=== PATIENT | male | born 1950 | race Caucasian/White ===

== ENCOUNTER 2016-04-29 14:20 | Outpatient (CLI) | payer SELFPAY ==
[2016-04-29] MEDS ORDERED: PROPAFENONE HCL 150 MG TAB PO ONE (14:30)
--- NOTE | 2016-05-01 15:06 | EPPROC ---
Electrophysiology Procedure Note: Pt admitted for first dose of Propafenone 600mg po . He tolerated it well. he was monitored. There was no conversion to SR. He continued to be in AF. He was discharged to home with instructions to call us in AM for possible CV.
== END 2016-04-29 18:09 | disposition home or self-care (01) ==
LOC: FCATH 14:20
PROVIDERS: ATTEND Internal Medicine Cardiovascular Disease
DX: I48.91 Unspecified atrial fibrillation (principal)

== ENCOUNTER 2016-12-28 09:43 | Day surgery (SDC) | payer OTHER ==
[2016-12-28] MEDS ORDERED: hydrALAZINE 20 MG/ML VIAL IVP PRN (10:26)
[2016-12-28] MEDS ORDERED: NS 1,000 ML IV SCH (10:30)
[2016-12-28 10:40] LABS: % IMMATURE GRANULYOCYTES 0.2 % (0.0-1.1); ABSOLUTE IMMATURE GRANULOCYTES 0.01 10^3/uL (0.00-0.10); ADD DIFF? NO; ADD MORPH? NO; ADD SCAN? NO; ATYPICAL LYMPHOCYTE FLAG 10 (0-99); FRAGMENT RBC FLAG 0 (0-99); HEMATOCRIT 43.9 % (40.0-51.0); HEMOGLOBIN 15.8 g/dL (13.7-17.5); LEFT SHIFT FLG 0 (0-99); LIPEMIA HEMOLYSIS FLAG 90 (0-99); MEAN CELL HEMOGLOBIN 31.7 pg (27.9-34.1); MEAN CELL VOLUME 88.2 fL (81.5-99.8); MEAN PLATELET VOLUME 9.7 fL (8.7-11.7); PLATELET CLUMPS FLAG 20 (0-99); PLATELET COUNT 197 10^3/uL (150-400); RED BLOOD CELL COUNT 4.98 10^6/uL (4.40-6.38); RED CELL DISTRIBUTION WIDTH 13.2 % (11.5-15.2)
[2016-12-28 10:52] LABS: INR 0.95 (0.83-1.16); PROTIME(PATIENT) 12.6 SEC (12.0-15.0)
[2016-12-28 10:53] LABS: APTT 27.5 SEC (23.0-38.0)
[2016-12-28 11:07] LABS: ANION GAP 7 mEq/L (8-16); CALCIUM 9.4 mg/dL (8.5-10.4); CARBON DIOXIDE 24 mEq/l (22-31); CHLORIDE 107 mEq/L (97-110); CREATININE 0.9 mg/dL (0.7-1.3); GLOMERULAR FILTRATION RATE > 60; GLUCOSE 94 mg/dL (70-100); SODIUM 138 mEq/L (134-144)
[2016-12-28] MEDS ORDERED: FLUMAZENIL 0.5 MG/5 ML MDV IVP ONE (11:17)
[2016-12-28] MEDS ORDERED: MIDAZOLAM 2 MG/2 ML VIAL ONE (11:17)
[2016-12-28] MEDS ORDERED: NALOXONE HCL 0.4 MG/ML INJ ONE (11:17)
[2016-12-28] MEDS ORDERED: fentaNYL 100 MCG/2 ML INJ ONE ×2 (11:18)
[2016-12-28] MEDS ORDERED: LIDOCAINE 1% 300 MG/30 ML SDV ONE (11:25)
[2016-12-28 13:19] LABS: HEMATOCRIT 43.3 % (40.0-51.0); HEMOGLOBIN 15.6 g/dL (13.7-17.5)
[2016-12-28 13:35] VITALS: TEMP 97.7
[2016-12-28] MEDS ORDERED: OXYCODONE/APAP 5/325 TAB ONE (14:20)
[2016-12-28] MEDS ORDERED: ACETAMINOPHEN 325 MG TAB PO PRN (14:37)
[2016-12-28] MEDS ORDERED: ONDANSETRON 4 MG/2 ML VIAL IVP PRN (14:38)
[2016-12-28] MEDS ORDERED: OXYCODONE/APAP 5/325 TAB PO PRN (14:38)
[2016-12-28 15:25] LABS: HEMATOCRIT 41.9 % (40.0-51.0)
[2016-12-28 17:26] LABS: HEMATOCRIT 36.7 % (40.0-51.0); HEMOGLOBIN 13.1 g/dL (13.7-17.5)
[2016-12-28 17:55] VITALS: RESP 16
[2016-12-28 19:39] VITALS: BP 124/73; O2SAT 92
[2016-12-28 19:40] LABS: HEMATOCRIT 43.4 % (40.0-51.0)
[2016-12-28 21:01] VITALS: PULSE 65
== END 2016-12-28 20:40 | disposition home or self-care (01) ==
LOC: FIMAGING 09:43
PROVIDERS: ATTEND Internal Medicine Nephrology
PROC: 0TB13ZX Excision of Left Kidney, Percutaneous Approach, Diagnostic (ICD-10-PCS; principal; 2016-12-28 12:42)
DX: N05.2 Unspecified nephritic syndrome with diffuse membranous glomerulonephritis (principal); I48.0 Paroxysmal atrial fibrillation; E78.5 Hyperlipidemia, unspecified; K21.9 Gastro-esophageal reflux disease without esophagitis
CPT/HCPCS: J1200; J2250; J2310; J3010

== ENCOUNTER → 2016-12-31 | Outpatient (CLI) | payer OTHER | LOC: FIMAGING 08:54 | PROVIDERS: ATTEND Internal Medicine Nephrology | DX: N05.2 Unspecified nephritic syndrome with diffuse membranous glomerulonephritis (principal) ==

== ENCOUNTER → 2017-06-09 | Outpatient (CLI) | payer OTHER | LOC: FLAB 09:58 | PROVIDERS: ATTEND Podiatrist | DX: S92.515D Nondisplaced fracture of proximal phalanx of left lesser toe(s), subsequent encounter for fracture with routine healing (principal) ==

== ENCOUNTER → 2017-07-17 | Outpatient (CLI) | payer OTHER | LOC: FIMAGING 11:23 | PROVIDERS: ATTEND Podiatrist | DX: S92.512D Displaced fracture of proximal phalanx of left lesser toe(s), subsequent encounter for fracture with routine healing (principal) ==

== ENCOUNTER → 2017-09-08 | Outpatient (CLI) | payer OTHER | LOC: FIMAGING 13:59 | PROVIDERS: ATTEND Podiatrist | DX: S92.512D Displaced fracture of proximal phalanx of left lesser toe(s), subsequent encounter for fracture with routine healing (principal) ==